=== PATIENT | male | born 1950 | race African-American/Black ===

== ENCOUNTER 2018-03-21 19:08 | Inpatient (IN) ==
[2018-03-21] MEDS ORDERED: SODIUM CHLORIDE 0.9% 1,000 ML IV STA (19:47)
[2018-03-21 20:24] LABS: Basophils % 0.5 % (0.0-0.8); Eosinophils # 0.1 10*3/uL (0.0-0.87); Eosinophils % 1.3 % (0.00-10.9); Hemoglobin 12.4 GM/DL (14.0-18.0); Immature Granulocytes % 0.7 %; Immature Granulocytes Absolute 0.06 #; Lymphocytes % 11.7 % (21.2-54.2); Mean Corpuscular HGB Conc 32.6 GM/DL (32-36); Mean Corpuscular Hemoglobin 28 PG (27-34); Monocytes # 0.6 10*3/uL (0.11-0.8); Monocytes % 7.4 % (1.7-12.7); Neutrophils # 6.6 10*3/uL (1.4-7.4); Neutrophils % 78.4 % (38.7-73.9); Platelet Count 131 T/CUMM (130-400); Red Blood Count 4.42 MC/CUMM (3.8-5.5); Red Cell Distribution Width 13.3 % (9.3-17.3); White Blood Count 8.4 T/CUMM (4-12)
[2018-03-21] MEDS ORDERED: ONDANSETRON 4 MG/2 ML VIAL IV STA (20:40)
[2018-03-21] MEDS ORDERED: hydrALAZINE 20 MG/1 ML VIAL IV STA (20:40)
[2018-03-21 20:47] LABS: Alanine Aminotransferase 35 U/L (16-61); Albumin 3.2 G/DL (3.4-5.0); Alkaline Phosphatase 136 U/L (45-117); Aspartate Amino Transferase 31 U/L (0-37); Bilirubin,Total < 0.39 MG/DL (0.2-1.0); Blood Urea Nitrogen 29 MG/DL (7-18); Glucose 241 MG/DL (74-106); Osmolality,Calculated 296.1 MOS/KG (273-304); Potassium 3.5 MMOL/L (3.5-5.1); Sodium 142 MMOL/L (136-145); Total Protein 6.6 G/DL (6.4-8.3)
[2018-03-21 22:50] LABS: Barbiturates Screen,Urine Negative (Negative); Benzodiazepines Screen,Urine Negative (Negative); Cannabinoid Screen,Urine Negative (Negative); Opiate Screen,Urine Positive (Negative); Phencyclidine Screen,Urine Negative (Negative)
[2018-03-21] MEDS ORDERED: NITROGLYCERIN SL 0.4 MG TABLET SL PRN (23:34)
[2018-03-21] MEDS ORDERED: ACETAMINOPHEN 325 MG TABLET PO PRN (23:34)
[2018-03-21] MEDS ORDERED: ONDANSETRON 4 MG/2 ML VIAL IV PRN (23:34)
[2018-03-21] MEDS ORDERED: GLUCAGON 1 MG VIAL IM PRN (23:34)
[2018-03-22] MEDS ORDERED: hydrALAZINE 20 MG/1 ML VIAL IV PRN (00:22)
[2018-03-22] MEDS: ENOXAPARIN 120 MG/0.8 ML SYRINGE SUBCUT SCH ×2 (00:34→14:27)
[2018-03-22] MEDS: SODIUM CHLORIDE 0.9% 1,000 ML IV SCH ×3 (01:03→20:42)
[2018-03-22 03:43] LABS: Basophils % 0.2 % (0.0-0.8); Eosinophils # 0.1 10*3/uL (0.0-0.87); Eosinophils % 0.7 % (0.00-10.9); Hematocrit 37.7 VOL% (42.0-52.0); Hemoglobin 12.1 GM/DL (14.0-18.0); Immature Granulocytes % 0.5 %; Immature Granulocytes Absolute 0.05 #; Lymphocytes % 10.9 % (21.2-54.2); Mean Corpuscular HGB Conc 32.1 GM/DL (32-36); Mean Corpuscular Hemoglobin 28 PG (27-34); Mean Corpuscular Volume 87.3 FL (87-102); Mean Platelet Volume 9.8 FL (9.6-12.0); Monocytes # 0.6 10*3/uL (0.11-0.8); Monocytes % 6.2 % (1.7-12.7); Neutrophils # 7.5 10*3/uL (1.4-7.4); Neutrophils % 81.5 % (38.7-73.9); Platelet Count 136 T/CUMM (130-400); Red Blood Count 4.32 MC/CUMM (3.8-5.5); Red Cell Distribution Width 13.4 % (9.3-17.3); White Blood Count 9.2 T/CUMM (4-12)
[2018-03-22 04:07] LABS: Calcium 8.1 MG/DL (8.5-10.1); Osmolality,Calculated 297.1 MOS/KG (273-304); Potassium 4.3 MMOL/L (3.5-5.1); Risk Ratio 6.44; Thyroid Stimulating Hormone 2.1 uIU/ml (0.358-3.74); VLDL CHOLESTEROL 25.4 MG/DL
[2018-03-22 04:18] LABS: Acanthocytes Few; Anisocytosis 1+; Eosinophils 2 % (0-10); Lymphocytes 16 % (20-55); Microcytosis 1+; Platelet Estimate Decreased; Segmented Neutrophils 78 % (50-85); Total Cells Counted 100
[2018-03-22] MEDS: LEVOTHYROXINE 200 MCG TABLET PO SCH (06:53)
[2018-03-22] MEDS: LEVOTHYROXINE 25 MCG TABLET PO SCH (06:53)
[2018-03-22] MEDS: INSULIN NPH/REGULAR 70/30 100 UNIT/ML SUBCUT SCH ×2 (08:56→20:44)
[2018-03-22] MEDS: INSULIN LISPRO 100 UNIT/ML SUBCUT SCH ×4 (08:56→20:43)
[2018-03-22] MEDS: LISINOPRIL/HCTZ 20-12.5 MG TABLET PO SCH ×2 (08:57→20:44)
[2018-03-22] MEDS: ASPIRIN EC 81 MG TABLET PO SCH (08:57)
[2018-03-22] MEDS ORDERED: INFLUENZA VIRUS VACCINE 0.5 ML SYRINGE IM ONE (09:00)
[2018-03-22] MEDS ORDERED: ENOXAPARIN 40 MG/0.4 ML SYRINGE SUBCUT SCH (09:00)
[2018-03-22 12:12] LABS: CKMB % 2.2 %
[2018-03-22 12:16] LABS: Troponin I 1.46 NG/ML (0.00-0.045)
[2018-03-22] MEDS ORDERED: POTASSIUM CHLORIDE RIDER 10 MEQ in PREMIX 1 EACH IV PRN (14:38)
[2018-03-22] MEDS ORDERED: diphenhydrAMINE CAP 25 MG CAPSULE PO ONE (14:38)
[2018-03-22] MEDS ORDERED: DIAZEPAM 5 MG TABLET PO ONE (14:38)
[2018-03-22] MEDS ORDERED: MAGNESIUM SULF RIDER 2 GM in PREMIX 1 EACH IV PRN (14:38)
[2018-03-22] MEDS: ACETYLCYSTEINE 600 MG CAPSULE PO SCH ×2 (16:36→20:44)
[2018-03-23] MEDS: ENOXAPARIN 120 MG/0.8 ML SYRINGE SUBCUT SCH (00:48)
[2018-03-23 04:40] LABS: Basophils % 0.4 % (0.0-0.8); Eosinophils # 0.1 10*3/uL (0.0-0.87); Eosinophils % 1.3 % (0.00-10.9); Hematocrit 34.4 VOL% (42.0-52.0); Hemoglobin 10.9 GM/DL (14.0-18.0); Immature Granulocytes % 0.3 %; Immature Granulocytes Absolute 0.02 #; Lymphocytes # 0.9 10*3/uL (1.4-4.0); Lymphocytes % 12.8 % (21.2-54.2); Mean Corpuscular HGB Conc 31.7 GM/DL (32-36); Mean Corpuscular Hemoglobin 27 PG (27-34); Mean Platelet Volume 10.4 FL (9.6-12.0); Monocytes # 0.6 10*3/uL (0.11-0.8); Monocytes % 8.5 % (1.7-12.7); Neutrophils # 5.4 10*3/uL (1.4-7.4); Neutrophils % 76.7 % (38.7-73.9); Platelet Count 132 T/CUMM (130-400); Red Cell Distribution Width 13.3 % (9.3-17.3); White Blood Count 7.1 T/CUMM (4-12)
[2018-03-23] MEDS: LEVOTHYROXINE 200 MCG TABLET PO SCH (05:09)
[2018-03-23] MEDS: LEVOTHYROXINE 25 MCG TABLET PO SCH (05:09)
[2018-03-23 05:13] LABS: Calcium 7.5 MG/DL (8.5-10.1); Potassium 3.7 MMOL/L (3.5-5.1)
[2018-03-23] MEDS: SODIUM CHLORIDE 0.9% 1,000 ML IV SCH ×2 (06:43→16:50)
[2018-03-23] MEDS: INSULIN LISPRO 100 UNIT/ML SUBCUT SCH ×4 (07:33→21:08)
[2018-03-23] MEDS: DEXTROSE 50% 25 GM/50 ML VIAL IV PRN (07:35)
[2018-03-23] MEDS ORDERED: diphenhydrAMINE CAP 25 MG CAPSULE PO ONE (08:00)
[2018-03-23] MEDS ORDERED: DIAZEPAM 5 MG TABLET PO ONE (08:00)
[2018-03-23] MEDS: ASPIRIN EC 81 MG TABLET PO SCH (08:22)
[2018-03-23] MEDS: LISINOPRIL/HCTZ 20-12.5 MG TABLET PO SCH ×2 (08:22→21:08)
[2018-03-23] MEDS: INSULIN NPH/REGULAR 70/30 100 UNIT/ML SUBCUT SCH ×2 (09:54→21:08)
[2018-03-23] MEDS ORDERED: LIDOCAINE 1% 20 ML VIAL ONE (10:01)
[2018-03-23] MEDS ORDERED: fentaNYL 100 MCG/2 ML VIAL ONE (10:02)
[2018-03-23] MEDS ORDERED: MIDAZOLAM 2 MG/2 ML VIAL ONE (10:02)
[2018-03-23] MEDS ORDERED: DEXTROSE 50% 25 GM/50 ML VIAL IV PRN (10:50)
[2018-03-23] MEDS ORDERED: GLUCAGON 1 MG VIAL IM PRN (10:50)
[2018-03-23] MEDS: ACETYLCYSTEINE 600 MG CAPSULE PO SCH ×2 (10:54→21:07)
[2018-03-23] MEDS: ENOXAPARIN 40 MG/0.4 ML SYRINGE SUBCUT SCH (21:09)
[2018-03-24] MEDS: SODIUM CHLORIDE 0.9% 1,000 ML IV SCH (02:44)
[2018-03-24 03:40] LABS: Basophils % 0.4 % (0.0-0.8); Eosinophils # 0.2 10*3/uL (0.0-0.87); Eosinophils % 3.1 % (0.00-10.9); Hematocrit 38.4 VOL% (42.0-52.0); Hemoglobin 12.5 GM/DL (14.0-18.0); Immature Granulocytes % 0.6 %; Immature Granulocytes Absolute 0.04 #; Lymphocytes # 1.3 10*3/uL (1.4-4.0); Lymphocytes % 18.4 % (21.2-54.2); Mean Corpuscular HGB Conc 32.6 GM/DL (32-36); Mean Corpuscular Hemoglobin 28 PG (27-34); Mean Corpuscular Volume 86.7 FL (87-102); Mean Platelet Volume 11.8 FL (9.6-12.0); Monocytes # 0.7 10*3/uL (0.11-0.8); Monocytes % 9.5 % (1.7-12.7); Neutrophils # 4.6 10*3/uL (1.4-7.4); Platelet Count 95 T/CUMM (130-400); Red Blood Count 4.43 MC/CUMM (3.8-5.5); Red Cell Distribution Width 13.2 % (9.3-17.3); White Blood Count 6.8 T/CUMM (4-12)
[2018-03-24 03:48] LABS: Calcium 7.4 MG/DL (8.5-10.1); Osmolality,Calculated 279.4 MOS/KG (273-304); Potassium 3.9 MMOL/L (3.5-5.1)
[2018-03-24 04:22] LABS: Band Neutrophils 3 % (0-10); Lymphocytes 27 % (20-55); Segmented Neutrophils 68 % (50-85); Total Cells Counted 100
[2018-03-24 04:23] LABS: Platelet Estimate Decreased
[2018-03-24] MEDS ORDERED: TISSUE ADHESIVE 1 EACH APPLICATOR TOP ONE (06:31)
[2018-03-24] MEDS ORDERED: LIDOCAINE 1%/EPI INJ 20 ML VIAL ONE (06:31)
[2018-03-24] MEDS: DEXTROSE 50% 25 GM/50 ML VIAL IV PRN (07:27)
[2018-03-24] MEDS: INSULIN LISPRO 100 UNIT/ML SUBCUT SCH ×4 (07:45→20:59)
[2018-03-24] MEDS ORDERED: LIDOCAINE 1%/EPI INJ 20 ML VIAL INFILTRAT ONE (10:03)
[2018-03-24] MEDS: LISINOPRIL/HCTZ 20-12.5 MG TABLET PO SCH (10:10)
[2018-03-24] MEDS: LEVOTHYROXINE 25 MCG TABLET PO SCH (10:10)
[2018-03-24] MEDS: ACETYLCYSTEINE 600 MG CAPSULE PO SCH ×2 (10:10→20:54)
[2018-03-24] MEDS: ASPIRIN EC 81 MG TABLET PO SCH (10:10)
[2018-03-24] MEDS: LEVOTHYROXINE 200 MCG TABLET PO SCH (10:10)
[2018-03-24] MEDS: INSULIN NPH/REGULAR 70/30 100 UNIT/ML SUBCUT SCH ×2 (10:10→20:53)
[2018-03-24] MEDS ORDERED: FUROSEMIDE 40 MG/4 ML VIAL IV ONE (11:31)
[2018-03-24] MEDS: amLODIPine 5 MG TABLET PO SCH (12:40)
[2018-03-24] MEDS: ENOXAPARIN 40 MG/0.4 ML SYRINGE SUBCUT SCH (20:54)
[2018-03-24] MEDS: LISINOPRIL 20 MG TABLET PO SCH (20:54)
[2018-03-25] MEDS: LEVOTHYROXINE 25 MCG TABLET PO SCH (05:22)
[2018-03-25] MEDS: LEVOTHYROXINE 200 MCG TABLET PO SCH (05:22)
[2018-03-25 08:05] VITALS: BP 167/88
[2018-03-25] MEDS: INSULIN LISPRO 100 UNIT/ML SUBCUT SCH (08:22)
[2018-03-25] MEDS: amLODIPine 5 MG TABLET PO SCH (08:25)
[2018-03-25] MEDS: LISINOPRIL 20 MG TABLET PO SCH (08:25)
[2018-03-25] MEDS: ACETYLCYSTEINE 600 MG CAPSULE PO SCH (08:25)
[2018-03-25] MEDS: ASPIRIN EC 81 MG TABLET PO SCH (08:25)
[2018-03-25] MEDS: INSULIN NPH/REGULAR 70/30 100 UNIT/ML SUBCUT SCH (08:25)
== END 2018-03-25 12:33 | disposition home or self-care (01) | DRG 261 ==
LOC: EDBD → EDUNIT# → N.ED 19:08 → SUATTDRO 22:40 → N.EDINP 22:40 → N.ICU 23:17 → N.TELEN 03-23 10:47
PROVIDERS: ADMIT Internal Medicine; ATTEND Internal Medicine
PROC: CLCCHCL (ICD-10-PCS; 2018-03-23 10:45)